=== PATIENT | male | born 1970 | race Caucasian/White ===

== ENCOUNTER 2021-02-26 07:58 | Outpatient (RCR) | payer MEDICARE, SELFPAY ==
[2021-02-26] MEDS: COVID-19 VACC, MRNA(PFIZER)/PF 30 MCG/0.3 ML SYRINGE IM (13:34)
[2021-03-19] MEDS: COVID-19 VACC, MRNA(PFIZER)/PF 30 MCG/0.3 ML SYRINGE IM (12:45)
== END 2021-04-15 23:59 ==
LOC: IMMUN 07:58
PROVIDERS: PCP Family Medicine; Referring Provider Family Medicine; Visit Provider Family Medicine
DX: Z23 Encounter for immunization (principal)
CPT/HCPCS: 0001A; 0002A; 91300

== ENCOUNTER 2021-12-15 15:00 | Outpatient (CLI) | payer BC, SELFPAY | END 2021-12-15 23:59 | disposition home or self-care (01) | LOC: IMMUN 12-16 15:01 | PROVIDERS: PCP Family Medicine; Visit Provider Family Medicine | DX: Z23 Encounter for immunization (principal) ==